=== PATIENT | male | born 1960 | race Caucasian/White ===

== ENCOUNTER 2020-03-10 13:20 | Outpatient (CLI) | payer MEDICAID, OTHER | END 2020-03-10 13:21 | disposition critical access hospital (66) | LOC: EMS 13:20 | PROVIDERS: ATTEND Surgery | DX: S59.911A Unspecified injury of right forearm, initial encounter (principal); V57.5XXA Driver of pick-up truck or van injured in collision with fixed or stationary object in traffic accident, initial encounter; Y92.413 State road as the place of occurrence of the external cause; Y99.0 Civilian activity done for income or pay | CPT/HCPCS: A0425; A0427 ==

== ENCOUNTER 2020-03-10 13:47 | Observation (INO) | payer MEDICAID, OTHER ==
[2020-03-10] MEDS ORDERED: HYDROmorphone 2 MG/ML VIAL IVP STA (13:51)
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
[2020-03-10] MEDS ORDERED: ONDANSETRON 4 MG/2 ML VIAL IVP STA ×2 (14:34→16:05)
[2020-03-10] MEDS ORDERED: KETAMINE 500 MG/10 ML VIAL IVP STA (14:48)
[2020-03-10] MEDS ORDERED: SODIUM CHLORIDE 0.9% 1,000 ML IV STA (14:53)
--- NOTE | 2020-03-10 15:09 | XRAY Report ---
PROCEDURE: Wrist 2 View RT INDICATIONS: RT WRIST FRACTURE TECHNIQUE: 2 views of the wrist were acquired. COMPARISON: Correlation is made with the accompanying forearm plain films, 03/10/2020. FINDINGS: Bones: The distal radius is fractured, with associated dislocation of the carpus along the volar asp ect of the distal radius. There is an associated moderately displaced fracture of the ulnar styloid. There is an anchor seen involving the base of the proximal phalanx of the thumb. Age-appropriate dege nerative changes are seen. Soft tissues: Soft tissue swelling is seen. IMPRESSION: Distal radius fracture, with radiocarpal dislocation, with the carpus dislocated along the volar aspe ct of the distal radius. There is an associated ulnar styloid fracture. Reviewed by: Bishop Quesada MD on 03/10/2020 2:07 PM TONI Approved by: Bishop Quesada MD on 03/10/2020 2:07 PM TONI Station ID: [id number]
--- NOTE | 2020-03-10 15:10 | XRAY Report ---
PROCEDURE: Forearm RT INDICATIONS: wrist inj TECHNIQUE: 2 views of the forearm were acquired. COMPARISON: Correlation is made with the accompanying wrist plain films, 02/12/2020. FINDINGS: Bones: A distal radius fracture is seen, with a radiocarpal dislocation, with the carpus dislocated i n the volar direction in relation to the distal radius. The patient's known ulnar styloid fracture is not well seen. Degenerative changes are seen. There is a postoperative anchor seen involving the base of the proxima l phalanx of the thumb. Soft tissues: Soft tissue swelling is seen. IMPRESSION: Radiocarpal dislocation, with a distal radius fracture. Poor visualization of the known ulnar styloid fracture. Reviewed by: Bishop Quesada MD on 03/10/2020 2:09 PM TONI Approved by: Bishop Quesada MD on 03/10/2020 2:09 PM TONI Station ID: [id number]
[2020-03-10] MEDS ORDERED: PROPOFOL 200 MG/20 ML VIAL IVP STA (15:17)
[2020-03-10] MEDS ORDERED: PROPOFOL 200 MG/20 ML VIAL IVP ONE (15:19)
[2020-03-10 15:44] LABS: BASOPHILS % (AUTO) 0.3 %; EOSINOPHILS % (AUTO) 0.3 %; HGB - HEMOGLOBIN 14.6 g/dL (14.0-18.0); LYMPHOCYTES # (AUTO) 1.5 10^3/uL (1.5-3.5); LYMPHOCYTES % (AUTO) 13.5 %; MEAN CORPUSCULAR HEMOGLOBIN 32.4 pg (27.0-31.0); MEAN PLATELET VOLUME 9.6 fL (7.4-11.4); MONOCYTES # (AUTO) 0.7 10^3/uL (0.0-1.0); MONOCYTES % (AUTO) 6.4 %; NEUTROPHILS # (AUTO) 8.8 10^3/uL (1.5-6.6); NEUTROPHILS % (AUTO) 78.8 %; PLT - PLATELET COUNT 237 10^3/uL (130-450); RED BLOOD COUNT 4.51 10^6/uL (4.70-6.10); WHITE BLOOD COUNT 11.2 x10^3/uL (4.8-10.8)
--- NOTE | 2020-03-10 15:49 | XRAY Report ---
PROCEDURE: Wrist 2 View RT INDICATIONS: post reduction TECHNIQUE: 2 views of the wrist were acquired. COMPARISON: 03/10/2020 at 1422 hours. FINDINGS: Bones: Patient is status post reduction of radiocarpal dislocation. There is normal association of th e radiocarpal joint in the current study. Distal radius and ulnar fractures are redemonstrated. Soft tissues: No suspicious soft tissue calcifications. IMPRESSION: Status post reduction of radiocarpal joint dislocation. Distal radius and ulnar fractures. Reviewed by: Alysia Williamson MD, PhD on 03/10/2020 3:48 PM PDT Approved by: Alysia Williamson MD, PhD on 03/10/2020 3:48 PM PDT Station ID: [id number]
[2020-03-10 15:51] LABS: INR 1.1 (0.8-1.2); PT - PROTHROMBIN TIME 12.7 secs (9.9-12.6)
[2020-03-10 15:56] LABS: ALBUMIN 4.2 g/dL (3.2-5.5); ALBUMIN/GLOBULIN RATIO 1.6 (1.0-2.2); ALKALINE PHOSPHATASE 42 IU/L (42-121); ALT ALANINE AMINOTRANSFERASE 25 IU/L (10-60); AST ASPARTATE AMINOTRANSFERASE 22 IU/L (10-42); BILIRUBIN,TOTAL 1.2 mg/dL (0.2-1.0); BUN - BLOOD UREA NITROGEN 24 mg/dL (6-20); CARBON DIOXIDE - CO2 22 mmol/L (21-32); CHLORIDE 104 mmol/L (101-111); CREATININE 1.1 mg/dL (0.6-1.2); GLUCOSE 168 mg/dL (70-100); LIPASE 44 U/L (22-51); SODIUM 138 mmol/L (135-145); TOTAL PROTEIN 6.8 g/dL (6.7-8.2)
[2020-03-10] MEDS ORDERED: POTASSIUM CHLOR 10 MEQ/100 ML 10 MEQ/100 ML BAG IV ONE (17:19)
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
--- NOTE | 2020-03-10 18:28 | CT Report ---
PROCEDURE: HEAD WO INDICATIONS: ams TECHNIQUE: Noncontrast 4.5 mm thick angled axial sections acquired from the foramen magnum to the vertex. For r adiation dose reduction, the following was used: automated exposure control, adjustment of mA and/or kV according to patient size. COMPARISON: None. FINDINGS: Image quality: Motion artifact is noted. Images were repeated, with some improvement. CSF spaces: Basal cisterns are patent. No extra-axial fluid collections. Ventricles are normal in size and shape. Brain: No midline shift. No intracranial masses or hemorrhage. Brown-white matter interface is norm al. Skull and face: Calvarium and visualized facial bones are intact, without suspicious lesions. On th e manager distribution image, there is a mandibular plate seen. Sinuses: Visualized sinuses and mastoids are clear. IMPRESSION: No acute abnormality is detected. No intracranial hemorrhage is seen. Reviewed by: Bishop Quesada MD on 03/10/2020 5:27 PM TONI Approved by: Bishop Quesada MD on 03/10/2020 5:27 PM AKDIANNA Station ID: [id number]
[2020-03-10] MEDS ORDERED: METOCLOPRAMIDE 10 MG/2 ML VIAL IVP PRN (19:06)
[2020-03-10] MEDS ORDERED: ACETAMINOPHEN 1,000 MG/100 ML 100 ML IV PRN (19:06)
[2020-03-10] MEDS ORDERED: ALBUTEROL NEB 2.5 MG/3 ML INH PRN (19:06)
[2020-03-10] MEDS ORDERED: ONDANSETRON 4 MG/2 ML VIAL IVP PRN (19:06)
[2020-03-10] MEDS ORDERED: SODIUM CHLORIDE FLUSH 0.9% 10 ML SYRINGE IVP PRN ×2 (19:06)
--- NOTE | 2020-03-10 19:17 | PROVIDER PROGRESS NOTE ---
Subjective - Prog Note Date Prog Note Date: 03/10/20 Prog Note Time: 19:14 - Subjective Pt reports feeling: No change Objective - Vital Signs/Intake & Output Vital Signs: Vital Signs x48h Temp Pulse Resp BP Pulse Ox 03/10/20 18:30 62 13 140/83 H 82 L 03/10/20 17:15 51 L 12 115/65 97 03/10/20 17:00 66 12 141/87 H 97 03/10/20 16:54 76 17 147/92 H 97 03/10/20 16:30 63 13 140/83 H 82 L 03/10/20 16:15 89 14 157/97 H 97 03/10/20 15:45 79 10 L 150/84 H 91 L 03/10/20 15:30 80 16 154/77 H 97 03/10/20 15:25 87 22 146/84 H 96 03/10/20 15:20 100 9 L 154/91 H 97 03/10/20 15:15 113 H 18 172/88 H 90 L 03/10/20 15:10 62 20 161/85 H 100 03/10/20 15:09 58 L 15 134/70 H 97 03/10/20 15:05 54 L 22 134/70 H 99 03/10/20 15:00 54 L 10 L 132/74 H 98 03/10/20 14:45 15 126/76 96 03/10/20 13:53 37.2 C 57 L 20 162/86 H 100 - Lab Results Fish Bones: 03/10/20 15:37 03/10/20 15:37 Other Labs: Lab Results x24hrs 03/10/20 03/10/20 03/10/20 Range/Units 15:37 15:37 15:37 WBC 11.2 H (4.8-10.8) x10^3/uL RBC 4.51 L (4.70-6.10) 10^6/uL Hgb 14.6 (14.0-18.0) g/dL Hct 40.6 L (42.0-52.0) % MCV 90.0 (80.0-94.0) fL MCH 32.4 H (27.0-31.0) pg MCHC 36.0 (32.0-36.0) g/dL RDW 12.0 (12.0-15.0) % Plt Count 237 (130-450) 10^3/uL MPV 9.6 (7.4-11.4) fL Neut # (Auto) 8.8 H (1.5-6.6) 10^3/uL Lymph # (Auto) 1.5 (1.5-3.5) 10^3/uL [place] # (Auto) 0.7 (0.0-1.0) 10^3/uL Eos # (Auto) 0.0 (0.0-0.7) 10^3/uL Baso # (Auto) 0.0 (0.0-0.1) 10^3/uL Absolute Nucleated RBC 0.00 x10^3/uL Nucleated RBC % 0.0 /100WBC PT 12.7 H (9.9-12.6) secs INR 1.1 (0.8-1.2) Sodium 138 (135-145) mmol/L Potassium 3.0 L (3.5-5.0) mmol/L Chloride 104 (101-111) mmol/L Carbon Dioxide 22 (21-32) mmol/L Anion Gap 12.0 (6-13) BUN 24 H (6-20) mg/dL Creatinine 1.1 (0.6-1.2) mg/dL Estimated GFR (MDRD) 69 L (>89) Glucose 168 H (70-100) mg/dL Calcium 9.0 (8.5-10.3) mg/dL Total Bilirubin 1.2 H (0.2-1.0) mg/dL AST 22 (10-42) IU/L ALT 25 (10-60) IU/L Alkaline Phosphatase 42 (42-121) IU/L Total Protein 6.8 (6.7-8.2) g/dL Albumin 4.2 (3.2-5.5) g/dL Globulin 2.6 (2.1-4.2) g/dL Albumin/Globulin Ratio 1.6 (1.0-2.2) Lipase 44 (22-51) U/L Ethyl Alcohol < 5.0 mg/dL - Diagnostic Imaging Diagnostic Imaging Comments: XR show volar dislocation of intra-articular distal radius fracture (Marcano"s type fx). POST REDUCTION XR shows marked improvement of fracture - Other Results/Comments Other Results/Comments: EXAM: In splint - Moving finger well. No passive stretch pain with extension of digit MCP joints. Sensation grossly intact in all three peripheral nerve distribution. Good cap filling. Assessment/Plan - Problem List (1) Fracture dislocation of right wrist Impression: Improved position after ED reduction and splinting PLAN: After overnight observation, can be discharged home from orthopedic standpoint. He will need to contact [facility] to schedule follow up appt next week, per hand surgeon that was consulted. Will likely need ORIF of fracture. Dr Jorden Noriega will be covering ortho in AM and has been alerted of patient's admission to Gen Surgery. Full note dictated. Qualifiers: Encounter type: initial encounter Fracture type: closed Qualified Code(s): S62.101A - Fracture of unspecified carpal bone, right wrist, initial encounter for closed fracture
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
--- NOTE | 2020-03-10 19:43 | XRAY Report ---
PROCEDURE: Chest 1 View X-Ray INDICATIONS: line placement TECHNIQUE: One view of the chest was acquired. COMPARISON: 03/10/2020 FINDINGS: Surgical changes and devices: None Lungs and pleura: No pleural effusions or pneumothorax. Minimal blunting of the left costophrenic an gle is stable. Mediastinum: Mediastinal contours appear normal. Heart size is normal. Bones and chest wall: No suspicious bony lesions. Overlying soft tissues appear unremarkable. IMPRESSION: No central line is identified by plain film radiograph. Reviewed by: Alysia Williamson MD, PhD on 03/10/2020 7:42 PM PDT Approved by: Alysia Williamson MD, PhD on 03/10/2020 7:42 PM PDT Station ID: [id number]
[2020-03-10] MEDS ORDERED: D5NS W/20 MEQ KCL 1,000 ML IV SCH (20:00)
[2020-03-10] MEDS: HEPARIN 5,000 UNIT/ML VIAL SUBQ SCH (20:57)
[2020-03-10] MEDS: D5NS W/20 MEQ KCL 1,000 ML IV SCH (20:58)
[2020-03-10] MEDS: methocarbamoL 500 MG TABLET PO SCH (23:43)
[2020-03-11] MEDS ORDERED: SODIUM CHLORIDE FLUSH 0.9% 10 ML SYRINGE IVP SCH (01:00)
[2020-03-11] MEDS: SODIUM CHLORIDE FLUSH 0.9% 10 ML SYRINGE IVP SCH ×3 (01:07→17:16)
[2020-03-11 05:36] LABS: MUDS CUTOFF CONCENTRATIONS CUTOFF CONC BELOW:
[2020-03-11 05:49] LABS: AMPHETAMINE SCREEN,URINE NEGATIVE (NEGATIVE); BENZODIAZEPINES SCREEN, URINE NEGATIVE (NEGATIVE); COCAINE SCREEN URINE NEGATIVE (NEGATIVE); METHADONE SCREEN, URINE NEGATIVE (NEGATIVE); METHAMPHETAMINES SCREEN, URINE NEGATIVE (NEGATIVE); OPIATE SCREEN, URINE POSITIVE (NEGATIVE); OXYCODONE SCREEN, URINE NEGATIVE (NEGATIVE); PROPOXYPHENE SCREEN, URINE NEGATIVE (NEGATIVE); TRICYCLIC ANTIDEPRESSANT,URINE NEGATIVE (NEGATIVE)
[2020-03-11] MEDS: methocarbamoL 500 MG TABLET PO SCH ×3 (06:41→18:59)
[2020-03-11] MEDS: PANTOPRAZOLE 40 MG VIAL IVP SCH (06:42)
[2020-03-11] MEDS: D5NS W/20 MEQ KCL 1,000 ML IV SCH ×2 (07:13→17:17)
--- NOTE | 2020-03-11 08:01 | PROVIDER PROGRESS NOTE ---
Subjective - General Admit Date: 03/10/20 - Review of Systems Musculoskeletal: positive: Other (pain to right wrist is controlled with splint and medications; he is alert. He has miminal numbness to fingers and can move fingers easily. He does have pain when moving right thumb) Objective - Patient Data Vital Signs: Vital Signs x48h Temp Pulse Pulse Resp BP BP BP 03/11/20 07:00 49 L 13 127/61 03/11/20 05:35 47 L 13 03/11/20 05:30 48 L 13 03/11/20 05:25 49 L 15 03/11/20 05:20 57 L 16 03/11/20 05:15 64 17 03/11/20 05:10 66 18 03/11/20 05:05 50 L 16 03/11/20 05:01 51 L 13 03/11/20 05:00 51 L 49 L 13 106/55 L 106/55 L 03/11/20 04:59 50 L 12 03/11/20 04:55 51 L 12 03/11/20 04:50 47 L 12 03/11/20 04:45 52 L 15 03/11/20 04:40 54 L 17 03/11/20 04:35 53 L 15 03/11/20 04:30 52 L 16 03/11/20 04:25 48 L 12 03/11/20 04:20 48 L 12 03/11/20 04:15 49 L 13 03/11/20 04:10 51 L 13 03/11/20 04:05 51 L 13 03/11/20 04:01 49 L 13 03/11/20 04:00 49 L 12 97/55 L 03/11/20 03:59 49 L 13 03/11/20 03:55 48 L 13 03/11/20 03:50 49 L 12 03/11/20 03:45 50 L 12 03/11/20 03:40 52 L 18 03/11/20 03:35 49 L 12 03/11/20 03:30 49 L 12 03/11/20 03:25 51 L 13 03/11/20 03:20 49 L 14 03/11/20 03:15 50 L 12 03/11/20 03:10 49 L 13 03/11/20 03:05 53 L 13 03/11/20 03:01 53 L 14 03/11/20 03:00 51 L 53 L 15 116/58 L 116/58 L 03/11/20 02:59 52 L 17 03/11/20 02:55 49 L 12 03/11/20 02:50 48 L 10 L 03/11/20 02:45 49 L 11 L 03/11/20 02:40 52 L 11 L 03/11/20 02:35 46 L 10 L 03/11/20 02:30 46 L 11 L 03/11/20 02:25 46 L 11 L 03/11/20 02:20 45 L 11 L 03/11/20 02:15 43 L 10 L 03/11/20 02:10 47 L 11 L 03/11/20 02:05 46 L 13 03/11/20 02:02 46 L 14 03/11/20 02:00 45 L 47 L 16 107/67 107/67 03/11/20 01:59 47 L 14 03/11/20 01:55 50 L 13 03/11/20 01:50 45 L 11 L 03/11/20 01:45 48 L 11 L 03/11/20 01:40 47 L 11 L 03/11/20 01:35 47 L 11 L 03/11/20 01:30 50 L 11 L 03/11/20 01:25 49 L 12 03/11/20 01:20 49 L 12 03/11/20 01:15 48 L 11 L 03/11/20 01:10 47 L 11 L 03/11/20 01:05 48 L 11 L 03/11/20 01:01 49 L 11 L 03/11/20 01:00 48 L 49 L 10 L 95/58 L 95/58 L 03/11/20 00:59 49 L 12 03/11/20 00:55 47 L 11 L 03/11/20 00:50 48 L 12 03/11/20 00:45 49 L 12 03/11/20 00:40 49 L 12 03/11/20 00:35 49 L 10 L 03/11/20 00:30 46 L 11 L 03/11/20 00:25 44 L 15 03/11/20 00:20 47 L 12 03/11/20 00:15 52 L 10 L 03/11/20 00:10 49 L 11 L 03/11/20 00:05 47 L 11 L 03/11/20 00:01 45 L 12 107/60 03/11/20 00:00 36.8 C 47 L 47 L 11 L 107/61 Pulse Ox 03/11/20 07:00 96 03/11/20 05:35 03/11/20 05:30 03/11/20 05:25 03/11/20 05:20 03/11/20 05:15 03/11/20 05:10 03/11/20 05:05 03/11/20 05:01 03/11/20 05:00 97 03/11/20 04:59 03/11/20 04:55 03/11/20 04:50 03/11/20 04:45 03/11/20 04:40 03/11/20 04:35 03/11/20 04:30 03/11/20 04:25 03/11/20 04:20 03/11/20 04:15 03/11/20 04:10 03/11/20 04:05 03/11/20 04:01 03/11/20 04:00 03/11/20 03:59 03/11/20 03:55 03/11/20 03:50 03/11/20 03:45 03/11/20 03:40 03/11/20 03:35 03/11/20 03:30 03/11/20 03:25 03/11/20 03:20 03/11/20 03:15 03/11/20 03:10 03/11/20 03:05 03/11/20 03:01 03/11/20 03:00 96 03/11/20 02:59 03/11/20 02:55 03/11/20 02:50 03/11/20 02:45 03/11/20 02:40 03/11/20 02:35 03/11/20 02:30 03/11/20 02:25 03/11/20 02:20 03/11/20 02:15 03/11/20 02:10 03/11/20 02:05 03/11/20 02:02 03/11/20 02:00 99 03/11/20 01:59 03/11/20 01:55 03/11/20 01:50 03/11/20 01:45 03/11/20 01:40 03/11/20 01:35 03/11/20 01:30 03/11/20 01:25 03/11/20 01:20 03/11/20 01:15 03/11/20 01:10 03/11/20 01:05 03/11/20 01:01 03/11/20 01:00 95 03/11/20 00:59 03/11/20 00:55 03/11/20 00:50 03/11/20 00:45 03/11/20 00:40 03/11/20 00:35 03/11/20 00:30 03/11/20 00:25 03/11/20 00:20 03/11/20 00:15 03/11/20 00:10 03/11/20 00:05 03/11/20 00:01 03/11/20 00:00 95 Weight: Weight 03/09/20 03/10/20 03/11/20 23:59 23:59 23:59 Weight (kg) 74.5 kg 75 kg Intake & Output: Intake and Output Totals x24h 03/09/20 03/10/20 03/11/20 23:59 23:59 23:59 Intake Total 1100 1000 Output Total 650 Balance 1100 350 - Lab Results Lab Results: 03/10/20 15:37 03/10/20 15:37 Other Lab Results: Lab Results x24hrs 03/11/20 03/11/20 03/10/20 Range/Units 06:37 05:20 23:42 WBC (4.8-10.8) x10^3/uL RBC (4.70-6.10) 10^6/uL Hgb (14.0-18.0) g/dL Hct (42.0-52.0) % MCV (80.0-94.0) fL MCH (27.0-31.0) pg MCHC (32.0-36.0) g/dL RDW (12.0-15.0) % Plt Count (130-450) 10^3/uL MPV (7.4-11.4) fL Neut # (Auto) (1.5-6.6) 10^3/uL Lymph # (Auto) (1.5-3.5) 10^3/uL Haralson # (Auto) (0.0-1.0) 10^3/uL Eos # (Auto) (0.0-0.7) 10^3/uL Baso # (Auto) (0.0-0.1) 10^3/uL Absolute Nucleated RBC x10^3/uL Nucleated RBC % /100WBC PT (9.9-12.6) secs INR (0.8-1.2) Sodium (135-145) mmol/L Potassium (3.5-5.0) mmol/L Chloride (101-111) mmol/L Carbon Dioxide (21-32) mmol/L Anion Gap (6-13) BUN (6-20) mg/dL Creatinine (0.6-1.2) mg/dL Estimated GFR (MDRD) (>89) Glucose (70-100) mg/dL POC Whole Bld Glucose 104 H 145 H (70 - 100) mg/dL Calcium (8.5-10.3) mg/dL Total Bilirubin (0.2-1.0) mg/dL AST (10-42) IU/L ALT (10-60) IU/L Alkaline Phosphatase (42-121) IU/L Troponin I High Sens (2.3-19.7) ng/L Total Protein (6.7-8.2) g/dL Albumin (3.2-5.5) g/dL Globulin (2.1-4.2) g/dL Albumin/Globulin Ratio (1.0-2.2) Lipase (22-51) U/L Nasal Screen MRSA (PCR) (NEGATIVE) Urine Opiates Screen POSITIVE H (NEGATIVE) Ur Oxycodone Screen NEGATIVE (NEGATIVE) Urine Methadone Screen NEGATIVE (NEGATIVE) Ur Propoxyphene Screen NEGATIVE (NEGATIVE) Ur Barbiturates Screen NEGATIVE (NEGATIVE) Ur Tricyclics Screen NEGATIVE (NEGATIVE) Ur Phencyclidine Scrn NEGATIVE (NEGATIVE) Ur Amphetamine Screen NEGATIVE (NEGATIVE) U Methamphetamines Scrn NEGATIVE (NEGATIVE) U Benzodiazepines Scrn NEGATIVE (NEGATIVE) Urine Cocaine Screen NEGATIVE (NEGATIVE) U Cannabinoids Screen POSITIVE H (NEGATIVE) Ethyl Alcohol mg/dL 03/10/20 03/10/20 03/10/20 Range/Units 20:40 19:27 15:37 WBC (4.8-10.8) x10^3/uL RBC (4.70-6.10) 10^6/uL Hgb (14.0-18.0) g/dL Hct (42.0-52.0) % MCV (80.0-94.0) fL MCH (27.0-31.0) pg MCHC (32.0-36.0) g/dL RDW (12.0-15.0) % Plt Count (130-450) 10^3/uL MPV (7.4-11.4) fL Neut # (Auto) (1.5-6.6) 10^3/uL Lymph # (Auto) (1.5-3.5) 10^3/uL Haralson # (Auto) (0.0-1.0) 10^3/uL Eos # (Auto) (0.0-0.7) 10^3/uL Baso # (Auto) (0.0-0.1) 10^3/uL Absolute Nucleated RBC x10^3/uL Nucleated RBC % /100WBC PT (9.9-12.6) secs INR (0.8-1.2) Sodium (135-145) mmol/L Potassium (3.5-5.0) mmol/L Chloride (101-111) mmol/L Carbon Dioxide (21-32) mmol/L Anion Gap (6-13) BUN (6-20) mg/dL Creatinine (0.6-1.2) mg/dL Estimated GFR (MDRD) (>89) Glucose (70-100) mg/dL POC Whole Bld Glucose (70 - 100) mg/dL Calcium (8.5-10.3) mg/dL Total Bilirubin (0.2-1.0) mg/dL AST (10-42) IU/L ALT (10-60) IU/L Alkaline Phosphatase (42-121) IU/L Troponin I High Sens 19.4 19.1 (2.3-19.7) ng/L Total Protein (6.7-8.2) g/dL Albumin (3.2-5.5) g/dL Globulin (2.1-4.2) g/dL Albumin/Globulin Ratio (1.0-2.2) Lipase (22-51) U/L Nasal Screen MRSA (PCR) NEGATIVE (NEGATIVE) Urine Opiates Screen (NEGATIVE) Ur Oxycodone Screen (NEGATIVE) Urine Methadone Screen (NEGATIVE) Ur Propoxyphene Screen (NEGATIVE) Ur Barbiturates Screen (NEGATIVE) Ur Tricyclics Screen (NEGATIVE) Ur Phencyclidine Scrn (NEGATIVE) Ur Amphetamine Screen (NEGATIVE) U Methamphetamines Scrn (NEGATIVE) U Benzodiazepines Scrn (NEGATIVE) Urine Cocaine Screen (NEGATIVE) U Cannabinoids Screen (NEGATIVE) Ethyl Alcohol mg/dL 03/10/20 03/10/20 03/10/20 Range/Units 15:37 15:37 15:37 WBC 11.2 H (4.8-10.8) x10^3/uL RBC 4.51 L (4.70-6.10) 10^6/uL Hgb 14.6 (14.0-18.0) g/dL Hct 40.6 L (42.0-52.0) % MCV 90.0 (80.0-94.0) fL MCH 32.4 H (27.0-31.0) pg MCHC 36.0 (32.0-36.0) g/dL RDW 12.0 (12.0-15.0) % Plt Count 237 (130-450) 10^3/uL MPV 9.6 (7.4-11.4) fL Neut # (Auto) 8.8 H (1.5-6.6) 10^3/uL Lymph # (Auto) 1.5 (1.5-3.5) 10^3/uL Haralson # (Auto) 0.7 (0.0-1.0) 10^3/uL Eos # (Auto) 0.0 (0.0-0.7) 10^3/uL Baso # (Auto) 0.0 (0.0-0.1) 10^3/uL Absolute Nucleated RBC 0.00 x10^3/uL Nucleated RBC % 0.0 /100WBC PT 12.7 H (9.9-12.6) secs INR 1.1 (0.8-1.2) Sodium 138 (135-145) mmol/L Potassium 3.0 L (3.5-5.0) mmol/L Chloride 104 (101-111) mmol/L Carbon Dioxide 22 (21-32) mmol/L Anion Gap 12.0 (6-13) BUN 24 H (6-20) mg/dL Creatinine 1.1 (0.6-1.2) mg/dL Estimated GFR (MDRD) 69 L (>89) Glucose 168 H (70-100) mg/dL POC Whole Bld Glucose (70 - 100) mg/dL Calcium 9.0 (8.5-10.3) mg/dL Total Bilirubin 1.2 H (0.2-1.0) mg/dL AST 22 (10-42) IU/L ALT 25 (10-60) IU/L Alkaline Phosphatase 42 (42-121) IU/L Troponin I High Sens (2.3-19.7) ng/L Total Protein 6.8 (6.7-8.2) g/dL Albumin 4.2 (3.2-5.5) g/dL Globulin 2.6 (2.1-4.2) g/dL Albumin/Globulin Ratio 1.6 (1.0-2.2) Lipase 44 (22-51) U/L Nasal Screen MRSA (PCR) (NEGATIVE) Urine Opiates Screen (NEGATIVE) Ur Oxycodone Screen (NEGATIVE) Urine Methadone Screen (NEGATIVE) Ur Propoxyphene Screen (NEGATIVE) Ur Barbiturates Screen (NEGATIVE) Ur Tricyclics Screen (NEGATIVE) Ur Phencyclidine Scrn (NEGATIVE) Ur Amphetamine Screen (NEGATIVE) U Methamphetamines Scrn (NEGATIVE) U Benzodiazepines Scrn (NEGATIVE) Urine Cocaine Screen (NEGATIVE) U Cannabinoids Screen (NEGATIVE) Ethyl Alcohol < 5.0 mg/dL - Current Medications Current Medications: Current Medications Generic Name Dose Route Start Last Admin Trade Name Freq PRN Reason Stop Dose Admin Heparin Sodium (Porcine) 5,000 unit 03/10/20 21:00 03/10/20 20:57 SUBQ 5,000 unit BID ALYSA Administration Potassium Chloride/Dextrose/Sod Cl 1,000 mls @ 100 mls/hr 03/10/20 20:00 03/11/20 07:13 IV 100 mls/hr .Q10H ALYSA Administration Methocarbamol 500 mg 03/11/20 00:00 03/11/20 06:41 Robaxin PO 500 mg Q6HR ALYSA Administration Pantoprazole Sodium 40 mg 03/11/20 07:00 03/11/20 06:42 Protonix IVP 40 mg QDAC ALYSA Administration Sodium Chloride 10 ml 03/11/20 01:00 03/11/20 01:07 Normal Saline Flush 0.9% IVP Not Given 0100,0900,1700 ALYSA - Physical Exam Extremities: positive: Other (no sign on exam of compartment syndrome or neurovascular deficit) Impression/Plan - Problem List Problem List: Fracture dislocation right wrist Continue elevation and splint; he will require surgical stabilization of his right wrist within the week. [place] and may wish to have surgery closer to home. Otherwise, he can be seen here in orthopedic clinic on this
[2020-03-11 09:31] LABS: CALCIUM 8.4 mg/dL (8.5-10.3); PHOSPHORUS 1.8 mg/dL (2.5-4.6)
[2020-03-11] MEDS: HEPARIN 5,000 UNIT/ML VIAL SUBQ SCH ×3 (11:09→20:06)
--- NOTE | 2020-03-11 12:16 | PHARMACY PROGRESS NOTE ---
- Best Possible Medication History Admit Date and Time: 03/11/20 1103 Processed by: Pharmacy Medication History completed: Yes Patient Interview: Pt interview ONLY source As the person ultimately responsible for medication therapy, providers are able to order a medication from an existing home medication list in [facility] via the "Reconcile Routine" prior to Confirmation of that medication by client support analyst. Such practice is discouraged except when the physician, in their clinical judgment, deems that a medical need exists for a medication without regard to previous use.
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
[2020-03-11] MEDS: IPRATROPIUM 0.2 MG/ML NEB INH SCH ×2 (15:15→15:16)
[2020-03-11] MEDS: NEUTRA-PHOS 250 MG TABLET PO SCH ×3 (17:16→19:00)
[2020-03-11] MEDS: HYDROmorphone 0.5 MG/0.5 ML SYRINGE IVP PRN ×2 (17:17→20:11)
--- NOTE | 2020-03-11 17:22 | Discharge Plan ---
Discharge Plan Problem Reviewed?: Yes Disposition: Home, Self Care Condition: Good Prescriptions: Hydrocodone/Acetaminophen [Aledo 5-325 Tablet] 1 each PO Q4HR PRN #42 tablet PRN Reason: Pain methocarbamoL [Robaxin] 500 mg PO Q6HR PRN #30 tablet PRN Reason: Spasms Diet: Regular Activity Restrictions: No weight bearing RUE Shower Restrictions: No Driving Restrictions: Yes Weight Bearing: Other (No weight bearing RUE) Health Concerns: DISCHARGE INSTRUCTIONS TEMPLATE: Call or proceed to clinic/ER for fevers, severe pain, nausea, vomiting, inability to pass flatus/stool, bleeding, wound redness/discharge, weakness, excessively loose stool/diarrhea, or for any other reasonably worrisome symptom or concern. Soft diet, low residue, no raw vegetables, avoid high fiber foods. Colace 100mg by mouth twice to three times daily while taking narcotic pain medication. If no bowel movement in 24-48hr, may take 17g Miralax in 8oz water twice daily until bowel movement. Follow up in clinic in 1 weeks. Patient to follow-up with Dr. Choudhury Orthopedic surgical outpatient clinic on . Follow up with primary care provider and/or medical subspecialist following discharge as well. Plan of Treatment: DISCHARGE INSTRUCTIONS TEMPLATE: Call or proceed to clinic/ER for fevers, severe pain, nausea, vomiting, inability to pass flatus/stool, bleeding, wound redness/discharge, weakness, excessively loose stool/diarrhea, or for any other reasonably worrisome symptom or concern. Soft diet, low residue, no raw vegetables, avoid high fiber foods. Colace 100mg by mouth twice to three times daily while taking narcotic pain medication. If no bowel movement in 24-48hr, may take 17g Miralax in 8oz water twice daily until bowel movement. Follow up in clinic in 1 weeks. Patient to follow-up with Dr. Choudhury Orth[facility] surgical outpatient clinic on . Follow up with primary care provider and/or medical subspecialist following discharge as well. Assessment: Time of discharge patient had no paresthesias no change in sensory motor function of the right upper extremity which remain splinted. Patient okay from discharge from a surgical standpoint. With regard to the bradycardia this was likely related to the patient's historic athletic physique as well as sedation. Per hospitalist the echocardiography was within normal limits. Follow-up with Dr. Guerrero this week Additional Instructions or Follow Up instructions: Follow-up with Dr. Guerrero within 1 week, schedule appointment for . No Smoking: If you smoke, Please STOP! Call for help.
[2020-03-11] MEDS ORDERED: D5NS W/20 MEQ KCL 1,000 ML IV SCH (20:34)
[2020-03-12] MEDS: methocarbamoL 500 MG TABLET PO SCH ×2 (00:04→06:29)
[2020-03-12] MEDS: SODIUM CHLORIDE FLUSH 0.9% 10 ML SYRINGE IVP SCH (00:22)
[2020-03-12] MEDS: HYDROmorphone 0.5 MG/0.5 ML SYRINGE IVP PRN ×2 (02:53→10:46)
[2020-03-12] MEDS: PANTOPRAZOLE 40 MG VIAL IVP SCH (06:29)
[2020-03-12 09:50] LABS: CALCIUM 8.7 mg/dL (8.5-10.3); MAGNESIUM 1.9 mg/dL (1.7-2.8); PHOSPHORUS 2.3 mg/dL (2.5-4.6)
[2020-03-12] MEDS: HEPARIN 5,000 UNIT/ML VIAL SUBQ SCH (10:45)
[2020-03-12 12:13] VITALS: BP 128/79
== END 2020-03-12 11:50 | disposition home or self-care (01) ==
LOC: ED 13:47 → ICU 19:27 → INTOOBSV 19:27 → UNDOADMOB 19:27 → ICU 03-11 11:03
PROVIDERS: ADMIT Surgery; ATTEND Surgery
DX: R00.1 Bradycardia, unspecified (principal); S52.561A Barton's fracture of right radius, initial encounter for closed fracture; R41.82 Altered mental status, unspecified; R06.81 Apnea, not elsewhere classified; T41.295A Adverse effect of other general anesthetics, initial encounter; Y92.238 Other place in hospital as the place of occurrence of the external cause; S52.611A Displaced fracture of right ulna styloid process, initial encounter for closed fracture; V48.5XXA Car driver injured in noncollision transport accident in traffic accident, initial encounter; Y92.410 Unspecified street and highway as the place of occurrence of the external cause; Y99.0 Civilian activity done for income or pay; E78.5 Hyperlipidemia, unspecified; R79.89 Other specified abnormal findings of blood chemistry
CPT/HCPCS: 1040M; 25660; 36415; 70450; 71045; 72125; 73090; 73100; 80053; 80306; 80320; 82040; 82310; 83690; 83735; 84100; 84132; 84484; 85025; 85610; 87150; 93005; 93306; 96361; 96365; 96366; 96372; 96375; 96376; 97161; 99152; 99153; 99285; A9270; G0378; J1170; 94770